=== PATIENT | female | born 2000 | race Hispanic/Latino ===

== ENCOUNTER 2020-01-02 12:50 | Emergency (ER) | payer OTHER, MEDICAID, SELFPAY ==
[2020-01-02 12:55] VITALS: BP 158/91; PULSE 99; RESP 14; O2SAT 100
--- NOTE | 2020-01-02 14:26 | ED_ITS ---
HPI - Extremity Injury (Upper) <David TimmonsTAYA edmondsP - Last Filed: 01/02/20 23:26> General Chief Complaint: Extremity Injury, Upper Stated Complaint: Tingling/Numbness In Right Hand Time Seen by Provider: 01/02/20 14:02 Source: patient Mode of arrival: Ambulatory Limitations: no limitations History of Present Illness HPI narrative: This is a 19 year female, nonsmoker, who has noncontributing medical history presents to ED with right dominant hand and wrist nontraumatic pain radiating up to forearm for last 1 week. Patient reports she had numbness and tingling to bilateral hands and arms for last 2 months specially during sleep but now she has pain as well. Reports pain in thumb and little finger in dorsal and volar aspect of right hand with feeling of tightness. Patient repo rts pain and numbness increases with flexion and extension of her wrist. 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 Patient sleeps prone position and reports chronic neck pain as well. She has been using [id number] Tylenol and Motrin alternating the medications for pain management. Related Data Home Medications Medication Instructions Recorded Confirmed No Known Home Medications 01/02/20 01/02/20 Allergies Allergy/AdvReac Type Severity Reaction Status Date / Time Penicillins [PENICILLINS] Allergy Unknown Verified 01/02/20 13:04 Review of Systems <David Kuhn [facility] - Last Filed: 01/02/20 23:26> Review of Systems Narrative: General: Denies fever, chills, fatigue, malaise, sweats. HEENT: Denies sinus pain, ear pain, sore throat, difficulty swallowing, dizziness. Respiratory: Denies dyspnea, cough, wheezing, hemoptysis, sputum. Cardiovascular: Denies chest pain, palpitations, orthopnea, edema. Gastrointestinal: Denies nausea, vomiting, abdominal pain, diarrhea, constipation, melena. : Denies dysuria, frequency, incontinence, hematuria, urinary retention. Musculoskeletal: See HPI Skin: Denies rash, skin lesions, or other. Neurologic: Denies weakness, headache, numbness, change in speech, confusion, seizures, incoordination. Psychiatric: No concerning psychosocial issues. 12-point review of systems is negative except for those stated above. Patient History <ADRIEN Berry - Last Filed: 01/02/20 23:26> Social History Smoking Status: Never smoker Smoking Status: Never smoker alcohol intake frequency: 0-2 drinks per day Substance Use Type: does not use Exam <ADRIEN Berry - Last Filed: 01/02/20 23:26> Narrative Exam Narrative: General appearance: well developed, well nourished, in no acute distress. Head: normocephalic, atraumatic, no scalp lesions, non-tender. ENT: Hearing grossly intact. Airway patent. Neck/Thyroid: neck supple, full range of motion but reports discomfort in right sternocleidomastoid muscle tightness. no visible masses or meningeal signs. No JVD, non-tender without lymphadenopathy. Skin: no suspicious rashes, lesions over visible areas. Warm and dry and appropriate color for ethnicity. Heart: no clubbing, no cyanosis, no edema. Lungs: Breathing even and unlabored. No stridor. No accessory muscles used. Able to speak in full sentences. Chest: normal shape and expansion. Abdomen: non-obese, non-distended. Neurologic: alert and oriented. 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 Psych: good eye contact, normal affect. Initial Vital Signs Initial Vital Signs: Vital Signs Pulse Rate 99 H 01/02/20 12:55 Respiratory Rate 14 01/02/20 12:55 Blood Pressure 158/91 H 01/02/20 12:55 Pulse Oximetry 100 01/02/20 12:55 Extrem Right upper extremity: elbow/forearm Details: normal to inspection; no tenderness and no swelling, wrist Details: normal to inspection, tenderness, abnormal ROM Details: pain with active ROM during Details: with extension and with flexion and pain with passive ROM during Details: with extension and with flexion, normal vascular exam and radial pulse present; no swelling, no unusual warmth, no abrasions, no ecchymosis, no deformity, Tinel's positive and Phalen's positive and hand Details: normal to inspection, normal capillary refill, neuromotor exam normal, neurosensory exam normal (No gross abnormal but reports feeling heaviness), tendon exam normal, tenderness Location: of the thumb and of the 5th digit, vascular exam Details: radial pulse present and normal capillary refill, normal ROM of fingers and swelling Location: of the dorsal hand (And fingers); no unusual warmth, no abrasions, no lacerations, no ecchymosis and no puncture wound <Sangeeta Naidu DO - Last Filed: 01/08/20 07:31> Initial Vital Signs Initial Vital Signs: Vital Signs Pulse Rate 99 H 01/02/20 12:55 Respiratory Rate 14 01/02/20 12:55 Blood Pressure 158/91 H 01/02/20 12:55 Pulse Oximetry 100 01/02/20 12:55 Procedures <ADRIEN Berry - Last Filed: 01/02/20 23:26> Orthopedic Splinting/Casting Injury #1: Side: right Upper Extremity Injury Location: wrist and hand Upper Extremity Immobilizer: wrist splint Post splinting neuro exam: intact Post splinting vascular exam: intact Placed by: Nursing Scores <ADRIEN Berry - Last Filed: 01/02/20 23:26> GCS Vladimir coma scale eye opening: Spontaneous Vladimir coma scale verbal response: Orientated [place] coma scale motor response: Obey commands Vladimir coma scale total score: 15 Course <ADRIEN Berry - Last Filed: 01/02/20 23:26> Vital Signs Vital signs: Vital Signs - 8 hr 01/02/20 12:55 Pulse Rate 99 H Respiratory Rate 14 Blood Pressure 158/91 H Pulse Oximetry 100 <Sangeeta Naidu DO - Last Filed: 01/08/20 07:31> Vital Signs Vital signs: Vital Signs - 8 hr 01/02/20 12:55 Pulse Rate 99 H Respiratory Rate 14 Blood Pressure 158/91 H Pulse Oximetry 100 MDM - Extremity Injury (Upper) <ADRIEN Berry - Last Filed: 01/02/20 23:26> Differential Diagnosis Differential diagnosis: Likely other (Wrist pain, hand pain, carpal tunnel syndrome, cervical radiculopathy) Medical Records Attestation: I reviewed the patient's medical records. [facility] Narrative Medical decision making narrative: This is a 19 year female who presents to ED with nontraumatic right, dominant hand and wrist pain radiating up to forearm and increasing tingling and numbness to right thumb and little finger for last 1 week. Patient has been having numbness and tingling to her bilateral hands for last 2 months prior. 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 Patient has intact radial pulse with brisk cap refill. Very mild swelling to right hand. Intact sensation and strength but patient reports right hand feels heavy with weaker cherry dipper. Physical exam appreciated Phalen's and Tinel test. Patient provided with prefabricated wrist splint which helped with her symptoms. Patient advised to follow-up with primary care physician and [facility] orthopedist for further evaluation for possible carpal tunnel syndrome. Patient reports chronic cervical neck pain and considered cervical radiculopathy as well. Return precautions were discussed with patient and advised to use [id number] Tylenol and or Motrin as needed for discomfort. Patient verbalized understanding and agreement with treatment plan. Patient declined x-ray test stating she does not recall injuring her wrist or hand. Discharge Plan Departure Patient Disposition: Home Clinical Impression: Hand pain, left, Left wrist pain Discharge Date/Time: 01/02/20 14:44 Instructions: DI for Carpal Tunnel Syndrome, DI for Wrist Pain, How to Perform Stretches for Carpal Tunnel Syndrome Activity Restrictions/Additional Instructions: You have been diagnosed with [left hand and wrist pain with tingling and numbness. Likely carpal tunnel syndrome.]. What to do: *Take your medications as directed. Please continue to take Tylenol and or Motrin as needed for discomfort. Use wrist splint that is provided to you for comfort. *Follow up with your primary care provider in 2-3 days, call for an appointment. Let them know you were seen in the ED and that we asked you to be seen in follow up. Please contact [facility] orthopedist if discomfort persists. *Return to ED if you have any new, worsening, or concerning symptoms, such as [worsening pain/numbness/ tingling,/pale fingertips, fever, unusual rashes or any acute concerns]. Prescriptions: No Action No Known Home Medications RF: 0 Referrals: [facility] [Provider Group] Darrel Chan MD [Primary Care Provider] - <Sangeeta Naidu DO - Last Filed: 01/08/20 07:31> Cosign ED Attending [place]mu[place] Attestation: I was immediately available in the department for consultation. Documentation has been reviewed. I agree with assessment and plan.
== END 2020-01-02 14:44 | disposition home or self-care (01) ==
PROVIDERS: Emergency Provider Nurse Practitioner Family; Family Provider Family Medicine; PCP Family Medicine
DX: M79.642 Pain in left hand (principal); M25.532 Pain in left wrist
CPT/HCPCS: 99281